=== PATIENT | female | born 1995 | race Caucasian/White ===

== ENCOUNTER → 2016-09-22 | Outpatient (CLI) | payer MEDICAID ==
[2016-09-22 16:38] LABS: BASO # 0.1 K/mm3 (0.0-0.2); BASO % 1.5 % (0.0-1.0); EOS # 0.2 K/mm3 (0.0-0.50); LYMPH # 1.1 K/mm3 (1.5-6.5); LYMPH % 12.8 % (24.0-44.0); MEAN CORPUSCULAR HEMOGLOBIN 30.9 pg (27.0-33.0); MEAN CORPUSCULAR HGB CONC 34.8 g/dl (32.0-36.5); MEAN CORPUSCULAR VOLUME 88.8 fl (80.0-96.0); MONO # 0.3 K/mm3 (0.0-0.8); MONO % 4.2 % (0.0-5.0); NEUTROPHILS # 6.1 K/mm3 (1.8-7.7); NEUTROPHILS % 78.1 % (36.0-66.0); RED CELL DISTRIBUTION WIDTH 12.6 % (11.5-14.5); WHITE BLOOD COUNT 7.8 K/mm3 (4.0-10.0)
[2016-09-22 17:52] LABS: ALBUMIN 4.5 GM/DL (3.2-5.2); ALBUMIN/GLOBULIN RATIO 1.67 (1.00-1.93); ALKALINE PHOSPHATASE 104 U/L (45-117); ALT/SGPT 19 U/L (12-78); ANION GAP 9 MEQ/L (8-16); AST/SGOT 14 U/L (15-37); BILIRUBIN,TOTAL 1.8 MG/DL (0.2-1.0); BLOOD UREA NITROGEN 10 MG/DL (7-18); CALCIUM LEVEL 9.3 MG/DL (8.5-10.1); CARBON DIOXIDE LEVEL 27 MEQ/L (21-32); CHLORIDE LEVEL 105 MEQ/L (98-107); CHOLESTEROL LEVEL 172 MG/DL (<200); CREATININE FOR GFR 0.87 MG/DL (0.55-1.02); FREE T4 1.15 NG/DL (0.76-1.46); GLOMERULAR FILTRATION RATE > 60.0 (>60); GLUCOSE, FASTING 77 MG/DL (70-105); POTASSIUM SERUM 4.3 MEQ/L (3.5-5.1); SODIUM LEVEL 141 MEQ/L (136-145); TOTAL PROTEIN 7.2 GM/DL (6.4-8.2); TRIGLYCERIDES LEVEL 78 MG/DL (<150)
== END ==
LOC: M LAB 15:28
PROVIDERS: ATTEND Physician Assistant
DX: Z00.01 Encounter for general adult medical examination with abnormal findings (principal); K21.9 Gastro-esophageal reflux disease without esophagitis

== ENCOUNTER → 2016-09-30 | Outpatient (CLI) | payer MEDICAID ==
--- NOTE | 2016-09-30 16:30 | REP ---
Pelvic sonography: History: Left lower quadrant pain. Findings: Transabdominal and transvaginal scanning are performed. Uterine dimensions are normal at 8.0 x 2.5 x 3.7 cm. Endometrial echo is 0.3 cm thick and centrally placed. There is a trace of endocervical fluid. No cul-de-sac fluid is seen. No focal uterine mass is seen. Normal ovaries are seen bilaterally. There is a 1.1 cm cyst in the right ovary. Right ovary dimensions are 2.9 x 2.0 x 2.1 cm. Right ovarian Doppler flow is normal with resistive index 0.29. The left ovary is normal in appearance measuring 1.8 x 2.0 x 2.5 cm. Its Doppler flow is normal with resistive index 0.35. Impression: Normal pelvic sonography. Signed by David Stanton MD 10/01/2016 08:26 A
== END ==
LOC: M RAD 14:45
PROVIDERS: ATTEND Physician Assistant
DX: R10.32 Left lower quadrant pain (principal); N83.201 Unspecified ovarian cyst, right side

== ENCOUNTER 2017-03-13 13:15 | Emergency (ER) | payer MEDICAID, OTHER ==
[~2017-03-13] VITALS: Ht 160 cm; Wt 64.7 kg
[2017-03-13 13:15] VITALS: BP 144/77
[2017-03-13] MEDS ORDERED: ACETAMINOPHEN TAB 650MG DOSE (2X325MG) PO ONE (14:00)
== END 2017-03-13 14:45 | disposition home or self-care (01) ==
LOC: M ED 14:16
DX: J06.9 Acute upper respiratory infection, unspecified (principal)

== ENCOUNTER 2017-03-16 13:42 | Emergency (ER) | payer MEDICAID, OTHER ==
[~2017-03-16] VITALS: Ht 160 cm; Wt 65.0 kg
[2017-03-16] MEDS ORDERED: NEXP1IMP SC (14:31)
--- NOTE | 2017-03-16 15:20 | REP ---
Clinical: Trauma. Technique: AP, lateral, bilateral oblique views left foot. Findings: The osseous structures and joint spaces are intact and normal. There is no evidence for acute fracture or dislocation. Surrounding soft tissues are unremarkable. No subcutaneous emphysema or radiodense foreign body. Impression: Age appropriate examination. No acute fracture or dislocation. Signed by Lee Sloan MD 03/16/2017 03:11 P
[2017-03-16] MEDS ORDERED: NAPR500T PO (15:23)
[2017-03-16 15:26] VITALS: BP 122/89
--- NOTE | 2017-03-16 15:32 | REP ---
Clinical: Trauma . Technique: AP, lateral, bilateral oblique views left ankle . Findings: No acute fracture or dislocation. Skeletal structures and joint spaces are intact and normal. Ankle mortise appears stable. No subcutaneous emphysema or radiodense foreign body. Impression: Normal left ankle radiograph series. Signed by Lee Sloan MD 03/16/2017 03:23 P
== END 2017-03-16 15:32 | disposition home or self-care (01) ==
LOC: M ED 13:42
DX: S93.492A Sprain of other ligament of left ankle, initial encounter (principal); S93.602A Unspecified sprain of left foot, initial encounter; X50.9XXA Other and unspecified overexertion or strenuous movements or postures, initial encounter; Y92.019 Unspecified place in single-family (private) house as the place of occurrence of the external cause; Y93.01 Activity, walking, marching and hiking; Y99.8 Other external cause status; F17.210 Nicotine dependence, cigarettes, uncomplicated; Z79.3 Long term (current) use of hormonal contraceptives

== ENCOUNTER → 2017-04-08 | Outpatient (CLI) | payer OTHER ==
[~2017-04-08] MED LIST: NAPR500T PO; NEXP1IMP SC
== END ==
LOC: M LAB 14:05
PROVIDERS: ATTEND Physician Assistant
DX: E55.9 Vitamin D deficiency, unspecified (principal)

== ENCOUNTER → 2017-04-08 | Outpatient (CLI) | payer OTHER | LOC: M LAB 14:02 | PROVIDERS: ATTEND Physician Assistant | DX: Z00.00 Encounter for general adult medical examination without abnormal findings (principal) ==

== ENCOUNTER → 2017-04-11 | Outpatient (CLI) | payer OTHER ==
--- NOTE | 2017-04-12 04:00 | REP ---
Clinical: Follow-up ovarian cyst. Comparison: 09/30/2016. Technique: Transabdominal pelvic ultrasound followed by transvaginal examination for better evaluation of the endometrium and adnexa with color Doppler evaluation of the ovaries. Findings: Bladder is unremarkable and measures 5.2 x 1.8 x 3.5 cm . Normal anteverted uterus measures 7.9 x 2.8 x 4.0 cm. The endometrial complex measures 2.5 mm thickness. No discrete uterine or endometrial abnormalities are appreciated. Trace endocervical fluid is appreciated and nonspecific. Bilateral ovaries are normal in appearance and vascularity without evidence for torsion. Right ovary measures 1.9 x 1.5 x 1.7 cm ; R I = 0.63 . Left ovary measures 3.4 x 3.1 x 2.4 cm with 2.3 cm dominant follicle ; R I = 0.54 . No pelvic fluid or adnexal mass lesion. Previously identified right ovarian cyst likely represented physiologic cyst / follicle and has resolved. Impression: 1. Normal pelvic ultrasound. Signed by Lee Sloan MD 04/12/2017 03:51 A
== END ==
LOC: M RAD 10:19
PROVIDERS: ATTEND Nurse Practitioner Adult Health
DX: R10.9 Unspecified abdominal pain (principal)

== ENCOUNTER 2017-07-31 11:14 | Emergency (ER) | payer OTHER ==
[~2017-07-31] VITALS: Ht 160 cm; Wt 66.4 kg
[2017-07-31 11:15] VITALS: BP 133/84
[2017-07-31] MEDS ORDERED: ELIM5CRE2 TOP ×2 (11:43→12:23)
== END 2017-07-31 11:53 | disposition home or self-care (01) ==
LOC: M ED 11:14
DX: B86 Scabies (principal)

== ENCOUNTER 2018-10-03 22:59 | Emergency (ER) | payer OTHER ==
[~2018-10-03] VITALS: Ht 165.1 cm; Wt 72.3 kg
[~2018-10-03 22:59] MED LIST changes: +ELIM5CRE2 TOP; +NAPR-50 PO; -NAPR500T PO
[2018-10-03 23:00] VITALS: BP 130/75
--- NOTE | 2018-10-04 05:48 | REP ---
Clinical: Trauma. Technique: AP, lateral right forearm. Findings: The osseous structures and joint spaces are intact and normal. There is no evidence for acute fracture or dislocation. Surrounding soft tissues are unremarkable. No subcutaneous emphysema or radiodense foreign body. Impression: Normal examination . No acute fracture or dislocation. Electronically Signed by Lee Sloan MD 10/04/2018 05:40 A
== END 2018-10-04 00:19 | disposition home or self-care (01) ==
LOC: M ED 22:59
DX: S50.11XA Contusion of right forearm, initial encounter (principal); Y92.89 Other specified places as the place of occurrence of the external cause; Y99.0 Civilian activity done for income or pay; F17.210 Nicotine dependence, cigarettes, uncomplicated

== ENCOUNTER → 2018-12-05 | Outpatient (CLI) | payer BC ==
--- NOTE | 2018-12-05 14:29 | REP ---
Clinical: Nonacute right knee pain Technique: AP, lateral, bilateral oblique and sunrise views. Findings: The osseous structures and joint spaces are intact and normal. There is no evidence for acute fracture or dislocation. No joint effusion is appreciated. Surrounding soft tissues are unremarkable. No subcutaneous emphysema or radiodense foreign body. Impression: Normal examination. No acute fracture or dislocation. Electronically Signed by eLe Sloan MD 12/05/2018 02:21 P
== END ==
LOC: M RAD 11:01
PROVIDERS: ATTEND Physician Assistant
DX: M25.569 Pain in unspecified knee (principal)

== ENCOUNTER 2019-01-10 14:30 | Inpatient (IN) | payer BC ==
[~2019-01-10] VITALS: Ht 160 cm; Wt 73.5 kg
[~2019-01-10 14:30] MED LIST changes: -NAPR-50 PO; +NAPR-837 PO
[2019-01-10] MEDS ORDERED: NALOXONE INJ 0.4 MG/1 ML VIAL (J2310) IV STA (14:42)
[2019-01-10] MEDS ORDERED: NS 1,000 ML IV ONE ×3 (14:45→19:00)
[2019-01-10] MEDS ORDERED: ONDANSETRON 4MG/2ML VIAL (J2405) IV ONE (14:45)
[2019-01-10 14:57] LABS: BASO # 0.1 10^3/uL (0.0-0.2); BASO % 0.3 % (0.0-1.0); EOS # 0.1 10^3/uL (0.0-0.50); EOS % 0.2 % (0.0-3.0); HEMATOCRIT 49.5 % (36.0-47.0); HEMOGLOBIN 17.1 g/dl (12.0-15.5); LYMPH # 0.8 10^3/uL (1.5-6.5); LYMPH % 2.6 % (24.0-44.0); MEAN CORPUSCULAR HGB CONC 34.5 g/dl (32.0-36.5); MEAN CORPUSCULAR VOLUME 92.5 fl (80.0-96.0); MONO # 1.3 10^3/uL (0.0-0.8); NEUTROPHILS % 92.2 % (36.0-66.0); PLATELET COUNT, AUTOMATED 366 10^3/uL (150-450); RED BLOOD COUNT 5.35 10^6/uL (4.00-5.40)
[2019-01-10] MEDS ORDERED: HYDR-643 PO (15:08)
[2019-01-10] MEDS ORDERED: VENL37.598 PO (15:08)
[2019-01-10 15:15] LABS: NEUTROPHILS # 29.3 10^3/uL (1.8-7.7)
[2019-01-10 15:18] LABS: AMPHETAMINES LEVEL URINE NEGATIVE (NEGATIVE); BARBITURATES URINE NEGATIVE (NEGATIVE); BENZODIAZEPINES URINE NEGATIVE (NEGATIVE); CANNABINOIDS URINE NEGATIVE (NEGATIVE); COCAINE METABOLITE URINE NEGATIVE (NEGATIVE); METHADONE URINE NEGATIVE (NEGATIVE); OPIATES URINE NEGATIVE (NEGATIVE); PHENCYCLIDINE URINE NEGATIVE (NEGATIVE)
[2019-01-10 15:19] LABS: WHITE BLOOD COUNT 31.8 10^3/uL (4.0-10.0)
[2019-01-10 15:23] LABS: ALBUMIN 4.6 GM/DL (3.2-5.2); ALT/SGPT 20 U/L (12-78); AMYLASE 33 U/L (25-115); BILIRUBIN,DIRECT 0.2 MG/DL (0.0-0.2); BILIRUBIN,TOTAL 1.4 MG/DL (0.2-1.0); BLOOD UREA NITROGEN 18 MG/DL (7-18); CALCIUM LEVEL 9.1 MG/DL (8.5-10.1); CARBON DIOXIDE LEVEL 21 MEQ/L (21-32); CHLORIDE LEVEL 111 MEQ/L (98-107); CK-MB VALUE MASS < 1.0 NG/ML (<3.6); CPK CREATINE PHOSPHOKINASE 69 U/L (26-192); GLOMERULAR FILTRATION RATE 59.3 (>60); GLUCOSE, FASTING 144 MG/DL (70-100); LIPASE 83 U/L (73-393); MB/CK RELATIVE INDEX 1.45 (< OR =4); POTASSIUM SERUM 3.5 MEQ/L (3.5-5.1); SODIUM LEVEL 140 MEQ/L (136-145); TOTAL PROTEIN 8.4 GM/DL (6.4-8.2); TROPONIN I < 0.02 NG/ML (< 0.10)
[2019-01-10 15:36] LABS: BILIRUBIN, URINE MANUAL NEGATIVE (NEGATIVE); GLUCOSE, URINE (UA) MANUAL NEGATIVE (NEGATIVE); KETONE, URINE MANUAL NEGATIVE (NEGATIVE); UROBILINOGEN, URINE MANUAL NORMAL (NORMAL)
[2019-01-10 15:43] LABS: AMORPHOUS SEDIMENT, URINE LARGE AMOUNT (NEGATIVE); BACTERIA, URINE SMALL AMOUNT; SQUAMOUS EPITHELIAL CELL URINE SMALL AMOUNT /hpf (SMALL AMT)
[2019-01-10] MEDS ORDERED: metroNIDAZOLE 500 MG in APPROPRIATE DILUENT 1 EA IV ONE (15:45)
[2019-01-10] MEDS ORDERED: CIPROFLOXACIN 400 MG in APPROPRIATE DILUENT 1 EA IV ONE (15:45)
[2019-01-10] MEDS: NS 1,000 ML IV SCH ×2 (16:00→22:44)
[2019-01-10 16:53] LABS: HCG, SERUM QUALITATIVE NEGATIVE (NEGATIVE)
[2019-01-10] MEDS ORDERED: ISOVUE-370 76% 100ML VIAL (Q9967) As Ordered ONE (16:58)
--- NOTE | 2019-01-10 18:54 | REPVR ---
EXAM: CT Abdomen and Pelvis With Contrast EXAM DATE/TIME: 01/10/2019 6:00 PM CLINICAL HISTORY: 23 years old, female; Abdominal pain; Additional info: AMS TECHNIQUE: Imaging protocol: Axial computed tomography images of the abdomen and pelvis with intravenous contrast. Coronal and sagittal reformatted images were created and reviewed. Radiation optimization: All CT scans at this facility use at least one of these dose optimization techniques: automated exposure control; mA and/or kV adjustment per patient size (includes targeted exams where dose is matched to clinical indication); or iterative reconstruction. Contrast material: ISO 370; Contrast volume: 100 ml; Contrast route: IV; COMPARISON: CT ABD PELVIS W/O CONTRAST 07/20/2016 4:50 PM FINDINGS: Lungs: Clear lung bases. ABDOMEN: Liver: Normal appearing liver. Gallbladder and bile ducts: Normal appearing gallbladder. Normal common bile duct. Pancreas: Normal pancreas. Spleen: Normal appearing spleen. Adrenals: Normal adrenal glands. Kidneys and ureters: There is enhancement of the kidneys. Stomach and bowel: There is a moderate amount of secretions throughout the small bowel possibly the result of mild ileus or enteritis. Appendix: No evidence of appendicitis. PELVIS: Bladder: There is a Melvin catheter within the urinary bladder with a small amount of air in the urinary bladder. Reproductive: Normal size uterus. 4 CM by 2.7 CM cyst of the right ovary probably a large follicular cysts. ABDOMEN and PELVIS: Intraperitoneal space: There are is no evidence of pneumoperitoneum. Bones/joints: There is moderate posterior disc protrusion L4-L5. Soft tissues: Unremarkable. Vasculature: There is opacification of the aorta and the aorta is normal in size. Lymph nodes: Normal. No enlarged lymph nodes. Other findings: There is opacification of the SMV. IMPRESSION: 1. There are secretions throughout the small bowel and this may be the result of mild ileus or enteritis. 2. 4 CM by 2.7 CM cyst of the right ovary. Electronically signed by: Kyle Reyes On 01/10/2019 18:54:00 PM
[2019-01-10] MEDS ORDERED: VANCOMYCIN ORAL SOL 250MG/5ML ORAL SYRINGE PO ONE (19:30)
[2019-01-10] MEDS ORDERED: NS 1,000 ML IV SCH (20:01)
[2019-01-10] MEDS ORDERED: ONDANSETRON 4MG/2ML VIAL (J2405) IV PRN (20:15)
--- NOTE | 2019-01-10 21:36 | ECGEPIP ---
Stationary ECG Study [facility] - ED Test Date: 2019-01-10 Pat Name: KATHARINE MARIE Department: Room: - Gender: F Copy Room Technician: DEVYN : [id number] Requested By: DIMPLE Garg Order Number: [id number] Reading MD: Coy Neves Measurements Intervals [place] Rate: 96 P: 74 [place]: 152 QRS: 91 QRSD: 81 T: 58 QT: 347 QTc: 440 Interpretive Statements SINUS RHYTHM BORDERLINE RIGHT AXIS DEVIATION Comparison tracing not on file Electronically Signed On 01-10-2019 21:36:01 EDT by Coy Neves
[2019-01-10] MEDS: ACETAMINOPHEN TAB 650MG DOSE (2X325MG) PO PRN (22:39)
[2019-01-11] MEDS ORDERED: LR 1,000 ML IV STA (00:30)
[2019-01-11] MEDS: LR 1,000 ML IV SCH ×7 (00:54→23:48)
--- NOTE | 2019-01-11 04:06 | IPNPDOC ---
Text Note Date of Service The patient was seen on 01/10/19. NOTE I saw and examined the patient, and discussed the case with the resident. Agree with resident's assessment and plan. Pt presented with AMS, hypotension, tachycardia, leucocytosis and elevated lactate level- consistent with sepsis. CT abd: enteritis. She improved with IV fluid in the ER, but remained persistently tachycardic. She was admitted to PCU and empirically started on IV Cipro, IV Flagyl and oral Vanco. GI panel came positive for Norovirus; negative for other microbes, including C. diff. Will d/c oral Vanco. Keep other antibiotics for now due to very high white count and critical state on presentation. De-escalate antibiotic as pt continues to improve. Physical exam is consistent with good perfusion. HR is improved to low 100. A-FIB/CHADSVASC A-FIB History Current/History of A-Fib/PAF?: No VS,Fishbone, I+O VS, Fishbone, I+O Laboratory Tests 01/10/19 14:40 Red Blood Count 5.35, Mean Corpuscular Volume 92.5, Mean Corpuscular Hemoglobin 32.0, Mean Corpuscular Hemoglobin Concent 34.5, Red Cell Distribution Width 11.9, Neutrophils (%) (Auto) 92.2 H, Lymphocytes (%) (Auto) 2.6 L, Monocytes (%) (Auto) 4.0, Eosinophils (%) (Auto) 0.2, Basophils (%) (Auto) 0.3, Neutrophils # (Auto) 29.3 H, Lymphocytes # (Auto) 0.8 L, Monocytes # (Auto) 1.3 H, Eosinophils # (Auto) 0.1, Basophils # (Auto) 0.1 Vital Signs Date Time Temp Pulse Resp B/P (MAP) Pulse Ox O2 Delivery O2 Flow Rate FiO2 01/11/19 03:28 97.9 108 16 108/55 (72) Room Air 01/11/19 01:30 98 01/10/19 15:45 2.0 I&O- Last 24 Hours up to 6 AM 01/11/19 06:00 Intake Total 7000 ml Output Total 500 ml Balance 6500 ml SULEIMAN MARVIN MD January 11, 2019 04:06
[2019-01-11] MEDS: CIPROFLOXACIN 400 MG in APPROPRIATE DILUENT 1 EA IV SCH ×2 (05:17→15:10)
--- NOTE | 2019-01-11 05:59 | HPE ---
DATE OF ADMISSION: 01/10/2019 The patient is a 23-year-old female with no significant medical history who presented to the emergency room today due to emesis and diarrhea starting today. It was noted that the emergency room patient had lost consciousness for about 20 minutes and regained consciousness after fluid resuscitation. She reported that she had 14 watery, yellow colored stools starting today along with several episodes of emesis. No hematochezia or melena was reported. 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 She reported until today her stool has been normal formed, about two bowel movements every day. She reported eating at [employer] last night at around 11 p.m. and her boyfriend, who also ate at [employer], developed some nausea and emesis but without any diarrhea. No fever or chills was reported. The patient described that she has a diffuse crampy abdominal pain that is about a 6/10. Other than the nausea, vomiting, diarrhea and abdominal pain she reports no other symptoms. The patient reported that even though she was vomiting, she was still able to hold down solid food and liquids. REVIEW OF SYSTEMS: GENERAL: The patient denies fever or chills. HEENT: Denies any visual changes. CHEST: Denies any chest pain, palpitations, shortness of breath. ABDOMEN: Diffuse, crampy abdominal pain. Positive for emesis and watery diarrhea. PAST MEDICAL HISTORY: 1. Asthma as a child. She used to be on Advair inhalers. 2. Depression/anxiety, mostly anxiety. 3. Gastroesophageal reflux disease (GERD). The was on Famotidine 20 mg as of 10/21/2015 but denies current medication for GERD. PAST SURGICAL HISTORY: 1. Tonsils and adenoids removal. 2. Nexplanon implantation. MEDICATIONS: - Nexplanon 68 mg subcutaneous daily implantation - venlafaxine HCL 37.5 mg by mouth daily FAMILY HISTORY: Father has arthritis and heart disease. Mother has mental illness. SOCIAL HISTORY: Denies alcohol use or recreational drug use. LABORATORY DATA: CBC: WBC 31.8, hemoglobin 17.1, hematocrit 49.5, platelets 366. CMP: Sodium 140, potassium 3.5, chloride 111, carbon dioxide 21, anion gap 8, BUN 18, creatinine 1.2, GFR 59.3, fasting glucose 144, lactic acid 4.1 with repeat at 4.2. Calcium 1.9, total bilirubin 1.4, direct bilirubin 0.2, AST 15. ALT 20, alkaline phosphatase 91. Troponin less than 0.02. Total CK 69, amylase 33, lipase 83, HCG negative. Urinalysis (UA) yellow, cloudy appearance with positive blood, large amount of amorphous sediments and a small amount of urine bacteria. Negative nitrites and negative leukocyte esterase. Urine toxicology (U-Tox) negative for opiates, methadone, barbiturates. PCP, amphetamine, benzodiazepines, cocaine, metabolites and cannabinoids. IMAGING: CT of the abdomen and pelvis with contrast showed secretions throughout the small bowel and this may be the result of mild ileus or enteritis, 4 x 2.7 cm cyst of the right ovary. PHYSICAL EXAMINATION: VITAL SIGNS: Temperature 99.5, heart rate 123, respiratory rate 18, blood pressure 124/66, pulse oximetry 98% on room air. GENERAL: The patient is in minimal distress. The patient appears to be fatigued. She is laying on the bed awake, alert and oriented times three. HEENT: Head normocephalic atraumatic. Conjunctivae grossly unremarkable. No sclerae icterus noted. Mucosa appears to be mildly dry. HEART: Tachycardia, regular rhythm, no murmur, normal S1, S2. LUNGS: Clear to auscultation bilaterally, no rales, wheezing or rhonchi. ABDOMEN: Bowel sounds auscultated in all four quadrants. Mild increased tenderness upon palpation of all four quadrants. No obvious distention or guarding noted. INTEGUMENTARY: No obvious jaundice noted. NEUROLOGIC: The patient is awake, alert and oriented times three, cognitive function and memory appears grossly normal. Able to carry a normal conversation and answering questions. Denies any numbness or tingling upon palpation in all four extremities. MUSCULOSKELETAL: Strength plus 5/5 in all four extremities. ASSESSMENT AND PLAN: 1. Enteritis. The patient had a syncope of about 20 minutes, loss of consciousness likely due to excessive dehydration from vomiting and diarrhea. It is noted that the patient woke up with a sternal rub with pinpoint pupils present in the emergency room. She had received 3 liters of normal saline bolus and regained consciousness after fluid resuscitation. At the time of examination the patient is awake, alert and oriented times three with normal sensation and muscle strength. No gross abnormalities except for sinus tachycardia observed on the residential monitor. Frequent watery diarrhea. No hematochezia or melena was reported. The patient had 13 episodes of watery diarrhea starting from today along with multiple episodes of emesis. She was in contact with a Clostridium difficile patient about four days ago and was in direct contact with the patient's stool. It was noted that she reported she ate [employer] yesterday around 11 p.m. and the boyfriend who also ate [employer] had nausea and vomiting this morning as well. The patient denied that the boyfriend had diarrhea at the time of interview. Likely secondary to Clostridium difficile colitis versus food intoxication vs other infectious etiologies. Complete metabolic profile (CMP) grossly unremarkable. The patient did have elevated lactic acid of 4.1 and 4.2 as a repeat. Leukocytosis was neutrophil predominance. CT of the abdomen and pelvis revealed enteritis. She also reported diffuse cramping abdominal pain which is tender to palpation without obvious guarding or distention. IV normal saline, by mouth vancomycin and probiotics as scheduled. The patient already received one dose of intravenous Ciprofloxacin and metronidazole when she was unconscious. An occult blood stool and gastrointestinal (GI) panel was ordered in the emergency department and the results are pending. Vital signs are scheduled. Repeat CMP and CBC tomorrow morning, Zofran as needed for nausea and vomiting and Tylenol as needed for pain/fever. Continue to observe the patient closely. Contact isolation. [facility]
[2019-01-11] MEDS ORDERED: VANCOMYCIN ORAL SOL 250MG/5ML ORAL SYRINGE PO SCH ×2 (06:00)
[2019-01-11 06:50] VITALS: BP 132/74
[2019-01-11] MEDS: HEPARIN SOD (PORCINE) 5000 UNITS/ML VIAL SC SCH ×3 (06:57→20:54)
[2019-01-11 07:41] VITALS: BP 123/73
[2019-01-11 07:51] LABS: ALBUMIN 2.7 GM/DL (3.2-5.2); ALT/SGPT 10 U/L (12-78); BILIRUBIN,TOTAL 1.1 MG/DL (0.2-1.0); BLOOD UREA NITROGEN 5 MG/DL (7-18); CALCIUM LEVEL 6.9 MG/DL (8.5-10.1); CARBON DIOXIDE LEVEL 19 MEQ/L (21-32); CHLORIDE LEVEL 114 MEQ/L (98-107); CREATININE FOR GFR 0.64 MG/DL (0.55-1.30); GLOMERULAR FILTRATION RATE > 60.0 (>60); GLUCOSE, FASTING 87 MG/DL (70-100); POTASSIUM SERUM 3.5 MEQ/L (3.5-5.1); SODIUM LEVEL 140 MEQ/L (136-145); TOTAL PROTEIN 4.8 GM/DL (6.4-8.2)
[2019-01-11] MEDS: LACTOBACILLUS ACIDOPHILUS CAP (BACID) PO SCH ×2 (07:53→17:46)
[2019-01-11] MEDS: metroNIDAZOLE 500 MG in APPROPRIATE DILUENT 1 EA IV SCH ×5 (07:53→23:36)
[2019-01-11] MEDS: VENLAFAXINE **XR** 37.5 MG CAPSULE PO SCH (11:27)
[2019-01-11 11:42] VITALS: BP 137/82
[2019-01-11 14:00] VITALS: BP 128/68; PULSE 100
[2019-01-11] MEDS: PANTOPRAZOLE 40MG INJ (PROTONIX) (C9113) IV SCH (14:25)
[2019-01-11 14:27] LABS: HEMATOCRIT 31.6 % (36.0-47.0); MEAN CORPUSCULAR HEMOGLOBIN 31.7 pg (27.0-33.0); MEAN CORPUSCULAR HGB CONC 34.2 g/dl (32.0-36.5); MEAN CORPUSCULAR VOLUME 92.7 fl (80.0-96.0); RED BLOOD COUNT 3.41 10^6/uL (4.00-5.40); WHITE BLOOD COUNT 6.9 10^3/uL (4.0-10.0)
[2019-01-11] MEDS ORDERED: CALCIUM CARBONATE 500 MG CHEW U/D PO ONE (14:30)
[2019-01-11 14:52] LABS: ALBUMIN 2.9 GM/DL (3.2-5.2); ALT/SGPT 11 U/L (12-78); BILIRUBIN,TOTAL 0.9 MG/DL (0.2-1.0); BLOOD UREA NITROGEN 4 MG/DL (7-18); CALCIUM LEVEL 7.4 MG/DL (8.5-10.1); CARBON DIOXIDE LEVEL 21 MEQ/L (21-32); CHLORIDE LEVEL 115 MEQ/L (98-107); CREATININE FOR GFR 0.53 MG/DL (0.55-1.30); GLOMERULAR FILTRATION RATE > 60.0 (>60); GLUCOSE, FASTING 88 MG/DL (70-100); POTASSIUM SERUM 3.4 MEQ/L (3.5-5.1); SODIUM LEVEL 141 MEQ/L (136-145); TOTAL PROTEIN 4.8 GM/DL (6.4-8.2)
[2019-01-11 14:56] LABS: HEMOGLOBIN 10.8 g/dl (12.0-15.5)
[2019-01-11 14:57] LABS: PLATELET COUNT, AUTOMATED 147 10^3/uL (150-450)
--- NOTE | 2019-01-11 15:56 | IPNPDOC ---
Date Seen The patient was seen on 01/11/19. Progress Note SUBJECTIVE: Patient tells me that she is feeling better she still feels weak and groggy but otherwise is further complaints he tells me that her belly pain is improving and she is not vomiting any further OBJECTIVE PHYSICAL EXAMINATION: VITAL SIGNS: Please see below. GENERAL: Young female lying in bed awake alert oriented 3 no acute distress HEENT: Dry mucous membranes elevation CVP cranial nerves grossly intact CARDIOVASCULAR: S1-S2 mildly tachycardic noticed heart sounds appreciated. RESPIRATORY: Clear to auscultation bilaterally. ABDOMINAL: Hyperactive bowel sounds diffuse tenderness to soft palpation especially in the epigastrium EXTREMITIES: No clubbing cyanosis or edema LABORATORY DATA, IMAGING STUDIES, MICROBIOLOGY: Please see below. DVT prophylaxis ordered?: Heparin every 8 ASSESSMENT AND PLAN: This is a 23-year-old female with nausea and vomiting likely secondary to an norovirus. PROBLEMS: 1. Noro virus: This is likely the etiology for her nausea vomiting and diarrhea. Boyfriend is also sick after eating [employer]. The time being to be provided with antiemetics And nothing by mouth continued on IV fluids she was hypotensive at the time of admission significantly dehydrated she does appear to be slightly improved at this time we'll continue supportive measures. I will start her on PPI and Carafate and Tums. Leukocytosis has resolved her polycythemia has resolved and was likely hemodynamic additional. Dr. Cantu suggested continuing antimicrobials for the time being we'll continue to monitor closely discontinuing tomorrow 2. Lactic acidosis: Secondary to dehydration and hypotension resolved with IV fluids. 3. Mood disorder: Continue with venlafaxine. DISPOSITION: Pending clinical improvement. VS, I&O, 24H, [place] Vital Signs/I&O Vital Signs Date Time Temp Pulse Resp B/P (MAP) Pulse Ox O2 Delivery O2 Flow Rate FiO2 01/11/19 14:00 100 20 128/68 (88) 95 Room Air 01/11/19 11:42 97.3 01/10/19 15:45 2.0 I&O- Last 24 Hours up to 6 AM 01/11/19 06:00 Intake Total 7000 ml Output Total 500 ml Balance 6500 ml Laboratory Data 24H LABS Laboratory Tests 2 01/10/19 16:06: Human Chorionic Gonadotropin, Qual NEGATIVE 01/10/19 19:09: Lactic Acid Followup at 4 Hours 4.2*H 01/11/19 06:51: Anion Gap 7L, Glomerular Filtration Rate > 60.0, Blood Urea Nitrogen 5#L, Creatinine 0.64, Sodium Level 140, Potassium Level 3.5, Chloride Level 114H, Car bon Dioxide Level 19L, Calcium Level 6.9#L, Aspartate Amino Transf (AST/SGOT) 14, Alanine Aminotransferase (ALT/SGPT) 10L, Alkaline Phosphatase 54, Total Bilirubin 1.1H, Total Protein 4.8#L, Albumin 2.7#L, Albumin/Globulin Ratio 1.29 01/11/19 14:09: Anion Gap 5L, Glomerular Filtration Rate > 60.0, Blood Urea Nitrogen 4L, Creatinine 0.53L, Sodium Level 141, Potassium Level 3.4L, Chloride Level 115H, Carbon Dioxide Level 21, Calcium Level 7.4L, Aspartate Amino Transf (AST/SGOT) 14, Alanine Aminotransferase (ALT/SGPT) 11L, Alkaline Phosphatase 55, Total Bilirubin 0.9, Total Protein 4.8L, Albumin 2.9L, Albumin/Globulin Ratio 1.53, Nucleated Red Blood Cells % (auto) 0.0, Lactic Acid Level 1.1 CBC/BMP Laboratory Tests 01/11/19 06:51 Calcium Level 6.9 #L, Aspartate Amino Transf (AST/SGOT) 14, Alanine Aminotransferase (ALT/SGPT) 10 L, Alkaline Phosphatase 54, Total Bilirubin 1.1 H, Total Protein 4.8 #L, Albumin 2.7 #L 01/11/19 14:09 Calcium Level 7.4 L, Aspartate Amino Transf (AST/SGOT) 14, Alanine Aminotransferase (ALT/SGPT) 11 L, Alkaline Phosphatase 55, Total Bilirubin 0.9, Total Protein 4.8 L, Albumin 2.9 L, Red Blood Count 3.41 L, Mean Corpuscular Volume 92.7, Mean Corpuscular Hemoglobin 31.7, Mean Corpuscular Hemoglobin Concent 34.2, Red Cell Distribution Width 12.2 Microbiology Microbiology 01/10/19 Blood Culture, Received Pending 01/10/19 Blood Culture - Preliminary, Resulted No growth after 24 hours . All specim... 01/10/19 Gastrointestinal Tract Panel (PCR) - Final, Complete Norovirus SAMMY LANGLEY MD January 11, 2019 15:56
[2019-01-11 16:00] VITALS: BP 130/77
[2019-01-11] MEDS ORDERED: GI COCKTAIL 50ML BTL(HYOSCYAMINE/MAALOX/LIDOCAINE VISCOUS)(1:3:1) PO ONE ×2 (16:00→23:45)
[2019-01-11] MEDS: MORPHINE 4 MG/ML 1ML VIAL/SYRINGE (J2270) IV PRN ×2 (17:46→20:54)
[2019-01-11] MEDS: SUCRALFATE 1 GM TAB PO SCH ×2 (17:47→20:53)
[2019-01-11 18:31] LABS: LIPASE 46 U/L (73-393)
[2019-01-11 19:05] VITALS: BP 127/69
[2019-01-11] MEDS: ACETAMINOPHEN TAB 650MG DOSE (2X325MG) PO PRN (23:35)
[2019-01-11] MEDS ORDERED: SIMETHICONE 80 MG CHEW TAB PO ONE (23:45)
[2019-01-12] VITALS: BP 144/91
[2019-01-12 00:24] LABS: ALBUMIN 2.9 GM/DL (3.2-5.2); ALT/SGPT 14 U/L (12-78); BILIRUBIN,TOTAL 0.8 MG/DL (0.2-1.0); BLOOD UREA NITROGEN 3 MG/DL (7-18); CALCIUM LEVEL 7.7 MG/DL (8.5-10.1); CARBON DIOXIDE LEVEL 25 MEQ/L (21-32); CHLORIDE LEVEL 111 MEQ/L (98-107); CREATININE FOR GFR 0.59 MG/DL (0.55-1.30); GLOMERULAR FILTRATION RATE > 60.0 (>60); GLUCOSE, FASTING 87 MG/DL (70-100); POTASSIUM SERUM 3.3 MEQ/L (3.5-5.1); SODIUM LEVEL 140 MEQ/L (136-145); TOTAL PROTEIN 5.6 GM/DL (6.4-8.2)
[2019-01-12] MEDS ORDERED: POTASSIUM CHLORIDE 10 MEQ SR TABLET PO ONE ×2 (00:45→07:00)
[2019-01-12] MEDS: LR 1,000 ML IV SCH ×4 (03:06→16:51)
[2019-01-12 04:00] VITALS: BP 129/67
[2019-01-12] MEDS: CIPROFLOXACIN 400 MG in APPROPRIATE DILUENT 1 EA IV SCH (04:26)
[2019-01-12] MEDS: MORPHINE 4 MG/ML 1ML VIAL/SYRINGE (J2270) IV PRN (04:27)
[2019-01-12 05:04] LABS: ALBUMIN 2.7 GM/DL (3.2-5.2); ALT/SGPT 11 U/L (12-78); BILIRUBIN,TOTAL 0.8 MG/DL (0.2-1.0); BLOOD UREA NITROGEN 3 MG/DL (7-18); CALCIUM LEVEL 7.8 MG/DL (8.5-10.1); CARBON DIOXIDE LEVEL 24 MEQ/L (21-32); CHLORIDE LEVEL 112 MEQ/L (98-107); CREATININE FOR GFR 0.59 MG/DL (0.55-1.30); GLOMERULAR FILTRATION RATE > 60.0 (>60); GLUCOSE, FASTING 83 MG/DL (70-100); POTASSIUM SERUM 3.4 MEQ/L (3.5-5.1); SODIUM LEVEL 140 MEQ/L (136-145); TOTAL PROTEIN 5.4 GM/DL (6.4-8.2)
[2019-01-12] MEDS: HEPARIN SOD (PORCINE) 5000 UNITS/ML VIAL SC SCH (05:46)
[2019-01-12 07:47] VITALS: BP 129/68
[2019-01-12 08:26] LABS: MAGNESIUM LEVEL 1.5 MG/DL (1.8-2.4)
[2019-01-12] MEDS: LACTOBACILLUS ACIDOPHILUS CAP (BACID) PO SCH ×2 (09:55→16:51)
[2019-01-12] MEDS: PANTOPRAZOLE 40MG INJ (PROTONIX) (C9113) IV SCH (09:55)
[2019-01-12] MEDS: SUCRALFATE 1 GM TAB PO SCH ×4 (09:56→21:09)
[2019-01-12] MEDS: metroNIDAZOLE 500 MG in APPROPRIATE DILUENT 1 EA IV SCH (09:56)
[2019-01-12] MEDS: VENLAFAXINE **XR** 37.5 MG CAPSULE PO SCH (11:13)
[2019-01-12] MEDS: MAG SULF 1GM/100ML (MAG RUN) 1 GM in APPROPRIATE DILUENT 1 EA IV SCH ×2 (11:14→12:11)
[2019-01-12 11:45] VITALS: BP 128/85
--- NOTE | 2019-01-12 14:22 | IPNPDOC ---
Date Seen The patient was seen on 01/12/19. Progress Note SUBJECTIVE: Patient was seen and examined this morning. She currently states that she is feeling better although she is still weak. She has noted a decrease in her nausea. She denies much vomiting. She denies diarrhea and states that her stool is formed. She states that she does have an appetite this morning and would be willing to try clear liquids. She has tolerated her clear liquids and has asked to have her diet advanced. OBJECTIVE PHYSICAL EXAMINATION: VITAL SIGNS: Please see below. GENERAL: Awake, alert, and oriented. Appears in no acute distress. Lying comfortably in bed. HEENT: Atrumatic, normocephalic. Eyes are nonicteric. Trachea is midline Mucous membranes are slightly dry CARDIOVASCULAR: Normal S1, S2. Regular rate and rhythm. No clicks rubs, or murmurs RESPIRATORY: Clear vesicular lung sounds bilaterally with good respiratory effort. No wheezes, rhonci, or rales ABDOMINAL: Soft, nondistended. Mild tenderness to palpation. No rebound tenderness or guarding. Positive bowl sounds EXTREMITIES: No edema. Full and equal pulses in bilateral upper and lower extremities NEUROLOGICAL: No focal neurological deficits PSYCHOLOGICAL: Mood and affect appear appropriate LABORATORY DATA, IMAGING STUDIES, MICROBIOLOGY: Please see below. DVT prophylaxis ordered?: YES ASSESSMENT AND PLAN: Patient is a 23 year old female who presented to the [facility] ER with complaint of nausea, vomiting, diarrhea, and abdominal pain. Patient had recently eaten from [employer]. She had developed her illness shortly after. Her boyfriend who had also eaten [employer] developed similar symptoms although not as severe. PROBLEMS: 1. Acute Gastroenteritis 2/2 Norovirus infection -Patient had GI panel that was positive for Norovirus. -Patient was advanced to clear liquids diet and has tolerated. We will advance to a BRAT diet. Will continue IV fluids and discontinue tomorrow as she was fairly hypotensive and hemoconcentrated on admission likely secondary to volume loss from her acute illness -Patient has Zofran for nausea -PPI and carafate will continue -Will discontinue antibiotics as the source of her infection is not likely bacterial 2. Lactic Acidosis -Resolved 3. Mood Disorder -Venalafaxine 4. CODE STATUS: DNR -Patient had indicated to nursing that she was/wants to be DNR/DNI. I have spoken with the patient and she states that she wishes to be DNR/DNI. The patient was provided with a MOLST form and I have personally discussed it with her. She will read through it with her family. DISPOSITION: Patient is improving clinically. Will transfer to Med/Surg A-FIB/CHADSVASC A-FIB History Current/History of A-Fib/PAF?: No VS, I&O, 24H, Fishbone Vital Signs/I&O Vital Signs Date Time Temp Pulse Resp B/P (MAP) Pulse Ox O2 Delivery O2 Flow Rate FiO2 01/12/19 11:45 97.3 87 18 128/85 (99) 97 01/11/19 14:00 Room Air 01/10/19 15:45 2.0 I&O- Last 24 Hours up to 6 AM 01/12/19 06:00 Intake Total 7180 ml Output Total 3750 ml Balance 3430 ml Laboratory Data 24H LABS Laboratory Tests 2 01/11/19 14:09: Nucleated Red Blood Cells % (auto) 0.0, Anion Gap 5L, Glomerular Filtration Rate > 60.0, Lactic Acid Level 1.1, Blood Urea Nitrogen 4L, Creatinine 0.53L, Sodium Level 141, Potassium Level 3.4L, Chloride Level 115H, Carbon Dioxide Level 21, C alcium Level 7.4L, Aspartate Amino Transf (AST/SGOT) 14, Alanine Aminotransferase (ALT/SGPT) 11L, Alkaline Phosphatase 55, Total Bilirubin 0.9, Total Protein 4.8L, Albumin 2.9L, Albumin/Globulin Ratio 1.53, Lipase 46L 01/11/19 23:50: Anion Gap 4L, Glomerular Filtration Rate > 60.0, Lactic Acid Level 1.0, Blood Urea Nitrogen 3L, Creatinine 0.59, Sodium Level 140, Potassium Level 3.3L, Chloride Level 111H, Carbon Dioxide Level 25, Calcium Level 7.7L, Aspartate Amino Transf (AST/SGOT) 13, Alanine Aminotransferase (ALT/SGPT) 14, Alkaline Phosphatase 59, Total Bilirubin 0.8, Total Protein 5.6L, Albumin 2.9L, Albumin/Globulin Ratio 1.07, Magnesium Level 1.5L 01/12/19 04:15: Anion Gap 4L, Glomerular Filtration Rate > 60.0, Lactic Acid Level 0.9, Blood Urea Nitrogen 3L, Creatinine 0.59, Sodium Level 140, Potassium Level 3.4L, Chloride Level 112H, Carbon Dioxide Level 24, Calcium Level 7.8L, Aspartate Amino Transf (AST/SGOT) 12, Alanine Aminotransferase (ALT/SGPT) 11L, Alkaline Phosphatase 55, Total Bilirubin 0.8, Total Protein 5.4L, Albumin 2.7L, Album in/Globulin Ratio 1.00 CBC/BMP Laboratory Tests 01/11/19 14:09 Red Blood Count 3.41 L, Mean Corpuscular Volume 92.7, Mean Corpuscular Hemoglobin 31.7, Mean Corpuscular Hemoglobin Concent 34.2, Red Cell Distribution Width 12.2, Calcium Level 7.4 L, Aspartate Amino Transf (AST/SGOT) 14, Alanine Aminotransferase (ALT/SGPT) 11 L, Alkaline Phosphatase 55, Total Bilirubin 0.9, Total Protein 4.8 L, Albumin 2.9 L 01/11/19 23:50 Calcium Level 7.7 L, Aspartate Amino Transf (AST/SGOT) 13, Alanine Aminotransferase (ALT/SGPT) 14, Alkaline Phosphatase 59, Total Bilirubin 0.8, Total Protein 5.6 L, Albumin 2.9 L 01/12/19 04:15 Calcium Level 7.8 L, Aspartate Amino Transf (AST/SGOT) 12, Alanine Aminotransferase (ALT/SGPT) 11 L, Alkaline Phosphatase 55, Total Bilirubin 0.8, Total Protein 5.4 L, Albumin 2.7 L Microbiology Microbiology 01/10/19 Blood Culture - Preliminary, Resulted No growth after 24 hours . All specim... 01/10/19 Blood Culture - Preliminary, Resulted No growth after 24 hours . All specim... 01/10/19 Gastrointestinal Tract Panel (PCR) - Final, Complete Norovirus GME ATTESTATION GME ATTESTATION My faculty preceptor for this patient encounter was physically present during the encounter and was fully available. All aspects of the patient interview, examination, medical decision making process, and medical care plan development were reviewed and approved by the faculty preceptor. The faculty preceptor is aware and concurs with the plan as stated in the body of this note and will attest to such by his/her cosignature. ATTENDING NOTE I saw and evaluated the patient. I agree with the findings and plan of care as documented in the resident's note ABBI KELLER DO January 12, 2019 13:10 SAMMY LANGLEY MD January 14, 2019 16:38
[2019-01-12 20:00] VITALS: BP 144/87
[2019-01-13] VITALS: BP 136/92
[2019-01-13] MEDS: LR 1,000 ML IV SCH (02:27)
[2019-01-13 04:00] VITALS: BP 148/69
[2019-01-13 07:30] LABS: HEMATOCRIT 31.5 % (36.0-47.0); HEMOGLOBIN 10.9 g/dl (12.0-15.5); MEAN CORPUSCULAR HEMOGLOBIN 31.8 pg (27.0-33.0); MEAN CORPUSCULAR HGB CONC 34.6 g/dl (32.0-36.5); MEAN CORPUSCULAR VOLUME 91.8 fl (80.0-96.0); PLATELET COUNT, AUTOMATED 172 10^3/uL (150-450); RED BLOOD COUNT 3.43 10^6/uL (4.00-5.40); WHITE BLOOD COUNT 6.4 10^3/uL (4.0-10.0)
[2019-01-13 07:38] LABS: ALBUMIN 2.9 GM/DL (3.2-5.2); ALT/SGPT 11 U/L (12-78); BILIRUBIN,TOTAL 0.7 MG/DL (0.2-1.0); BLOOD UREA NITROGEN 3 MG/DL (7-18); CALCIUM LEVEL 7.9 MG/DL (8.5-10.1); CARBON DIOXIDE LEVEL 23 MEQ/L (21-32); CHLORIDE LEVEL 112 MEQ/L (98-107); CREATININE FOR GFR 0.54 MG/DL (0.55-1.30); GLOMERULAR FILTRATION RATE > 60.0 (>60); GLUCOSE, FASTING 81 MG/DL (70-100); POTASSIUM SERUM 3.7 MEQ/L (3.5-5.1); SODIUM LEVEL 142 MEQ/L (136-145); TOTAL PROTEIN 5.1 GM/DL (6.4-8.2)
[2019-01-13] MEDS: LACTOBACILLUS ACIDOPHILUS CAP (BACID) PO SCH (07:52)
[2019-01-13] MEDS: SUCRALFATE 1 GM TAB PO SCH (07:52)
[2019-01-13] MEDS: PANTOPRAZOLE 40MG INJ (PROTONIX) (C9113) IV SCH (09:02)
[2019-01-13] MEDS: VENLAFAXINE **XR** 37.5 MG CAPSULE PO SCH (09:02)
--- NOTE | 2019-01-13 12:24 | DS.PDOC ---
Discharge Summary General Date of Admission January 10, 2019 at 22:42 Date of Discharge 01/13/19 Attending Physician: SAMMY LANGLEY MD Discharge Summary PROCEDURES PERFORMED DURING STAY: [None]. ADMITTING DIAGNOSES: 1. Acute Gastroenteritis DISCHARGE DIAGNOSES: 1. Acute Gastroenteritis COMPLICATIONS/CHIEF COMPLAINT: Enteritis. HISTORY OF PRESENT ILLNESS: Patient is a 23 year old female with no significant past medical history who presented to the [facility] ER with a complaint of intractable nausea, vomiting, diarrhea that started 01/09/19. She stated that she has had 14 watery stools. She had denied any fevers or chills. 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 Additionally, the patient had stated that she ate [employer] on 01/09/19 with her boyfriend. After eating she developed some nausea and vomiting but not diarrhea. She continued to have diffuse abdominal pain. She noted that her boyfriend also began to feel ill although less so then her. The patient continued to have nausea and vomiting and was unable to keep any liquids or food down and presented to the ER. In the ER, the patient had an episode of altered mental status which was felt to be due to hypovolemia secondary to excessive dehydration from vomiting and diarrhea. The patient was arousable to sternal rub. The patient was found to have an elevated lactic acid. She received a CT abdomen and pelvis which demonstrated findings consistent with enteritis. She continued to have diffuse cramping. She was given broad spectrum antibiotic coverage and IV normal saline. Patient was admitted to hospitalist service for further management. HOSPITAL COURSE: Once admitted, patient was found to have Norovirus as demonstrated on GI panel. Her symptoms were improving with IV hydration and antiemetics. Her antibiotics were discontinued as her symptoms were of viral etiology and not bacterial. Clinically the patient continued to improve and her diet was advanced to clear liquids. The patient had tolerated and her diet was advanced to BRAT. She tolerated well and had no nausea, vomiting, diarrhea, or fevers. DISCHARGE MEDICATIONS: Please see below. ALLERGIES: Please see below. PHYSICAL EXAMINATION ON DISCHARGE: VITAL SIGNS: Please see below. GENERAL: Awake, alert, and oriented. Appears in no acute distress. Lying comfortably in bed. HEENT: Atrumatic, normocephalic. Eyes are nonicteric. Trachea is midline Mucous membranes are slightly dry CARDIOVASCULAR: Normal S1, S2. Regular rate and rhythm. No clicks rubs, or murmurs RESPIRATORY: Clear vesicular lung sounds bilaterally with good respiratory effort. No wheezes, rhonci, or rales ABDOMINAL: Soft, nondistended. No tenderness to palpation of all 4 quadrants. No rebound tenderness or guarding. Positive bowl sounds EXTREMITIES: No edema. Full and equal pulses in bilateral upper and lower extremities NEUROLOGICAL: No focal neurological deficits PSYCHOLOGICAL: Mood and affect appear appropriate LABORATORY DATA: Please see below. IMAGING: EXAM: CT Abdomen and Pelvis With Contrast EXAM DATE/TIME: 01/10/2019 6:00 PM CLINICAL HISTORY: 23 years old, female; Abdominal pain; Additional info: AMS TECHNIQUE: Imaging protocol: Axial computed tomography images of the abdomen and pelvis with intravenous contrast. Coronal and sagittal reformatted images were created and reviewed. Radiation optimization: All CT scans at this facility use at least one of these dose optimization techniques: automated exposure control; mA and/or kV adjustment per patient size (includes targeted exams where dose is matched to clinical indication); or iterative reconstruction. Contrast material: ISO 370; Contrast volume: 100 ml; Contrast route: IV; COMPARISON: CT ABD PELVIS W/O CONTRAST 07/20/2016 4:50 PM FINDINGS: Lungs: Clear lung bases. ABDOMEN: Liver: Normal appearing liver. Gallbladder and bile ducts: Normal appearing gallbladder. Normal common bile duct. Pancreas: Normal pancreas. Spleen: Normal appearing spleen. Adrenals: Normal adrenal glands. Kidneys and ureters: There is enhancement of the kidneys. Stomach and bowel: There is a moderate amount of secretions throughout the small bowel possibly the result of mild ileus or enteritis. Appendix: No evidence of appendicitis. PELVIS: Bladder: There is a Melvin catheter within the urinary bladder with a small amount of air in the urinary bladder. Reproductive: Normal size uterus. 4 CM by 2.7 CM cyst of the right ovary probably a large follicular cysts. ABDOMEN and PELVIS: Intraperitoneal space: There are is no evidence of pneumoperitoneum. Bones/joints: There is moderate posterior disc protrusion L4-L5. Soft tissues: Unremarkable. Vasculature: There is opacification of the aorta and the aorta is normal in size. Lymph nodes: Normal. No enlarged lymph nodes. Other findings: There is opacification of the SMV. IMPRESSION: 1. There are secretions throughout the small bowel and this may be the result of mild ileus or enteritis. 2. 4 CM by 2.7 CM cyst of the right ovary. Electronically signed by: Kyle Reyes On 01/10/2019 18:54:00 PM PROGNOSIS: GOOD ACTIVITY: [As tolerated]. DIET: tolerated DISCHARGE PLAN: Patient is to be discharged home. She is to advance her diet as tolerated. She may return to work in 1 week. She is to follow-up with her primary care doctor as needed. DISPOSITION: 01 Home, Self-Care. DISCHARGE CONDITION: [Stable]. TIME SPENT ON DISCHARGE: Greater than 35 minutes. Vital Signs/I&Os Vital Signs Date Time Temp Pulse Resp B/P (MAP) Pulse Ox O2 Delivery O2 Flow Rate FiO2 01/13/19 04:00 99.2 75 16 148/69 (95) 96 01/11/19 14:00 Room Air 01/10/19 15:45 2.0 I&O- Last 24 Hours up to 6 AM 01/13/19 05:59 Intake Total 2395 ml Output Total 3250 ml Balance -855 ml Laboratory Data Labs 24H Laboratory Tests 2 01/13/19 06:40: Anion Gap 7L, Glomerular Filtration Rate > 60.0, Blood Urea Nitrogen 3L, Creatinine 0.54L, Sodium Level 142, Potassium Level 3.7, Chloride Level 112H, Carbon Dioxide Level 23, Calcium Level 7.9L, Aspartate Amino Transf (AST/SGOT) 14, Alanine Aminotransferase (ALT/SGPT) 11L, Alkaline Phosphatase 55, Total Bilirubin 0.7, Total Protein 5.1L, Albumin 2.9L, Albumin/Globulin Ratio 1.32 01/13/19 07:13: Nucleated Red Blood Cells % (auto) 0.0 CBC/BMP Laboratory Tests 01/13/19 06:40 Calcium Level 7.9 L, Aspartate Amino Transf (AST/SGOT) 14, Alanine Aminotransferase (ALT/SGPT) 11 L, Alkaline Phosphatase 55, Total Bilirubin 0.7, Total Protein 5.1 L, Albumin 2.9 L 01/13/19 07:13 Red Blood Count 3.43 L, Mean Corpuscular Volume 91.8, Mean Corpuscular Hemoglo bin 31.8, Mean Corpuscular Hemoglobin Concent 34.6, Red Cell Distribution Width 11.9 Microbiology Microbiology 01/10/19 Blood Culture - Preliminary, Resulted No Growth after 48 hours. All Specime... 01/10/19 Blood Culture - Preliminary, Resulted No Growth after 48 hours. All Specime... 01/10/19 Gastrointestinal Tract Panel (PCR) - Final, Complete Norovirus Discharge Medications Scheduled Etonogestrel (Nexplanon) 68 Mg Imp, 68 MG SC DAILY, (Reported) Venlafaxine HCl (Venlafaxine HCl ER) 37.5 Mg Cap.er.24h, 37.5 MG PO DAILY, (Reported) Allergies Coded Allergies: No Known Allergies (Unverified , 01/10/19) GME ATTESTATION GME ATTESTATION My faculty preceptor for this patient encounter was physically present during the encounter and was fully available. All aspects of the patient interview, examination, medical decision making process, and medical care plan development were reviewed and approved by the faculty preceptor. The faculty preceptor is aware and concurs with the plan as stated in the body of this note and will attest to such by his/her cosignature. ATTENDING NOTE I saw and evaluated the patient. I agree with the findings and plan of care as documented in the resident's note ABBI KELLER DO January 13, 2019 12:24 SAMMY LANGLEY MD January 14, 2019 16:41
== END 2019-01-13 09:45 | disposition home or self-care (01) | DRG 249 ==
LOC: M ED 14:30 → M ED INP 22:42 → M PCU 01-11 06:41 → M PED 01-12 23:51
PROVIDERS: ADMIT Internal Medicine; ATTEND Internal Medicine
DX: A08.11 Acute gastroenteropathy due to Norwalk agent (principal); E87.2 Acidosis; I95.9 Hypotension, unspecified; E86.0 Dehydration; K21.9 Gastro-esophageal reflux disease without esophagitis; F41.9 Anxiety disorder, unspecified; F32.9 Major depressive disorder, single episode, unspecified; R55 Syncope and collapse

== ENCOUNTER → 2019-01-22 | Outpatient (REF) | payer BC ==
[~2019-01-22] MED LIST changes: +HYDR-643 PO; +VENL37.598 PO
[2019-01-22 14:20] LABS: CHLAMYDIA DNA AMPLIFICATION NEGATIVE (NEGATIVE); GC DNA AMPLIFICATION NEGATIVE (NEGATIVE)
== END ==
LOC: M SFHCWAGY 11:55
PROVIDERS: ATTEND Nurse Practitioner Family
DX: Z11.3 Encounter for screening for infections with a predominantly sexual mode of transmission (principal)

== ENCOUNTER → 2019-03-12 | Outpatient (CLI) | payer BC ==
--- NOTE | 2019-03-12 10:24 | REP ---
Clinical: Pelvic pain. Right ovarian cyst . Technique: Transabdominal pelvic ultrasound followed by transvaginal examination for better evaluation of the endometrium and adnexa with color Doppler evaluation of the ovaries. Findings: Bladder is unremarkable and measures 8.5 x 9.9 x 5.3 cm . Normal anteverted/right deviated uterus measures 6.9 x 2.8 x 3.7 cm. The endometrial complex measures 1.9 mm with a small amount of endocervical fluid. No discrete uterine or endometrial abnormalities are appreciated. Bilateral ovaries are normal in appearance and vascularity without evidence for torsion. Right ovary measures 3.2 x 1.3 x 2.2 cm ; R I = 0.50 . Left ovary measures 2.9 x 1.7 x 2.4 cm ; R I = 0.53 . Prominent pelvic vessels are identified which increase on Valsalva suggesting pelvic congestion syndrome. . Impression: 1. Essentially normal uterus and bilateral ovaries. 2. Prominent pelvic vessels increasing on Valsalva suggest pelvic congestion syndrome.
== END ==
LOC: M WHC 08:47
PROVIDERS: ATTEND Nurse Practitioner Family
DX: R10.32 Left lower quadrant pain (principal)

== ENCOUNTER 2019-06-21 10:24 | Emergency (ER) | payer BC, OTHER ==
[~2019-06-21] VITALS: Ht 160 cm; Wt 73.3 kg
[2019-06-21 10:25] VITALS: BP 141/80
[2019-06-21] MEDS ORDERED: NAPR-837 PO (11:10)
== END 2019-06-21 11:29 | disposition home or self-care (01) ==
LOC: M ED 10:24
DX: S46.011A Strain of muscle(s) and tendon(s) of the rotator cuff of right shoulder, initial encounter (principal); Y93.F2 Activity, caregiving, lifting; Y92.129 Unspecified place in nursing home as the place of occurrence of the external cause; Y99.0 Civilian activity done for income or pay; F33.9 Major depressive disorder, recurrent, unspecified; F41.9 Anxiety disorder, unspecified; F17.210 Nicotine dependence, cigarettes, uncomplicated; Z79.899 Other long term (current) drug therapy

== ENCOUNTER 2019-06-23 23:24 | Emergency (ER) | payer BC, OTHER ==
[~2019-06-23] VITALS: Ht 160 cm; Wt 73.0 kg
[2019-06-23 23:24] VITALS: BP 138/74
[2019-06-23] MEDS ORDERED: KETO10TAB PO (23:38)
[2019-06-23] MEDS ORDERED: traMADol 50 MG TAB PO ONE (23:45)
[2019-06-23] MEDS ORDERED: ACETAMINOPHEN 325 MG TAB PO ONE (23:45)
== END 2019-06-24 00:01 | disposition home or self-care (01) ==
LOC: M ED 23:24
DX: S46.011D Strain of muscle(s) and tendon(s) of the rotator cuff of right shoulder, subsequent encounter (principal); Z02.79 Encounter for issue of other medical certificate; X58.XXXD Exposure to other specified factors, subsequent encounter; Y92.89 Other specified places as the place of occurrence of the external cause; Y93.9 Activity, unspecified; Y99.0 Civilian activity done for income or pay; F17.200 Nicotine dependence, unspecified, uncomplicated; Z79.899 Other long term (current) drug therapy

== ENCOUNTER 2019-12-06 22:45 | Emergency (ER) | payer BC, OTHER ==
[~2019-12-06] VITALS: Ht 160 cm; Wt 75.0 kg
[~2019-12-06 22:45] MED LIST changes: +KETO10TAB PO
[2019-12-06] MEDS ORDERED: NS 1,000 ML IV ONE (23:15)
[2019-12-06 23:45] LABS: BASO # 0.1 10^3/uL (0.0-0.2); BASO % 0.4 % (0.0-1.0); EOS # 0.3 10^3/uL (0.0-0.5); EOS % 1.5 % (0.0-3.0); HEMATOCRIT 40.4 % (36.0-47.0); HEMOGLOBIN 13.6 g/dl (12.0-15.5); LYMPH # 1.8 10^3/uL (1.5-5.0); LYMPH % 10.7 % (24.0-44.0); MEAN CORPUSCULAR HGB CONC 33.7 g/dl (32.0-36.5); MONO # 0.7 10^3/uL (0.0-0.8); MONO % 4.1 % (0.0-5.0); NEUTROPHILS # 13.9 10^3/uL (1.5-8.5); NEUTROPHILS % 82.9 % (36.0-66.0); PLATELET COUNT, AUTOMATED 218 10^3/uL (150-450); RED BLOOD COUNT 4.39 10^6/uL (4.00-5.40); WHITE BLOOD COUNT 16.7 10^3/uL (4.0-10.0)
[2019-12-06] MEDS ORDERED: ONDANSETRON 4MG/2ML VIAL (J2405) IV ONE (23:45)
[2019-12-07] MEDS ORDERED: ISOVUE-370 76% 100ML VIAL (Q9967) As Ordered ONE (00:13)
[2019-12-07 00:20] LABS: ALBUMIN 4.5 GM/DL (3.2-5.2); BILIRUBIN,DIRECT 0.2 MG/DL (0.0-0.2); BILIRUBIN,TOTAL 0.8 MG/DL (0.2-1.0)
--- NOTE | 2019-12-07 00:45 | REPVR ---
PROCEDURE INFORMATION: Exam: CT Abdomen And Pelvis With Contrast Exam date and time: 12/07/2019 12:06 AM Age: 24 years old Clinical indication: Abdominal pain; Localized; Left lower quadrant (llq); Additional info: Llq pain, n/v TECHNIQUE: Imaging protocol: Computed tomography of the abdomen and pelvis with intravenous contrast. Radiation optimization: All CT scans at this facility use at least one of these dose optimization techniques: automated exposure control; mA and/or kV adjustment per patient size (includes targeted exams where dose is matched to clinical indication); or iterative reconstruction. Contrast material: ISO; Contrast volume: 100 ml; Contrast route: AC; COMPARISON: CT ABD/PEL W/IV CONTRAST ONLY 01/10/2019 5:43 PM FINDINGS: Liver: Normal. No mass. Gallbladder and bile ducts: Normal. No calcified stones. No ductal dilation. Pancreas: Normal. No ductal dilation. Spleen: Normal. No splenomegaly. Adrenals: Normal. No mass. Kidneys and ureters: Normal. No hydronephrosis. Stomach and bowel: Unremarkable. No obstruction. No mucosal thickening. Appendix: No evidence of appendicitis. Intraperitoneal space: Unremarkable. No free air. No significant fluid collection. Vasculature: Unremarkable. No abdominal aortic aneurysm. Lymph nodes: Unremarkable. No enlarged lymph nodes. Bladder: Unremarkable as visualized. Reproductive: Unremarkable as visualized. Bones/joints: Unremarkable. No acute fracture. Soft tissues: Unremarkable. IMPRESSION: No acute process of the abdomen or pelvis. Electronically signed by: Aime Reyes On 12/07/2019 00:45:04 AM
[2019-12-07] MEDS ORDERED: ZOFR8TAB24 PO (01:08)
[2019-12-07 01:16] VITALS: BP 147/69
== END 2019-12-07 01:18 | disposition home or self-care (01) ==
LOC: M ED 22:45
DX: R10.32 Left lower quadrant pain (principal); R11.2 Nausea with vomiting, unspecified; R30.0 Dysuria; K52.9 Noninfective gastroenteritis and colitis, unspecified; Z87.42 Personal history of other diseases of the female genital tract; F17.210 Nicotine dependence, cigarettes, uncomplicated; Z79.3 Long term (current) use of hormonal contraceptives; Z79.899 Other long term (current) drug therapy
CPT/HCPCS: 74177; 80047; 80076; 81001; 83690; 84702; 85025; 96361; 96374; 99284; J2405; Q9967

== ENCOUNTER 2020-03-17 23:44 | Emergency (ER) | payer BC ==
[~2020-03-17] VITALS: Ht 160 cm; Wt 74.9 kg
[~2020-03-17 23:44] MED LIST changes: +ZOFR8TAB24 PO
[2020-03-18] MEDS ORDERED: ONDANSETRON 4MG/2ML VIAL IV ONE (01:45)
[2020-03-18] MEDS ORDERED: KETOROLAC 30 MG/ML 1ML VIAL IV ONE (01:45)
[2020-03-18] MEDS ORDERED: NS 1,000 ML IV ONE (01:45)
[2020-03-18 02:11] LABS: BASO # 0.1 10^3/uL (0.0-0.2); BASO % 0.5 % (0.0-1.0); EOS # 0.4 10^3/uL (0.0-0.5); EOS % 3.7 % (0.0-3.0); HEMATOCRIT 42.4 % (36.0-47.0); HEMOGLOBIN 14.4 g/dl (12.0-15.5); LYMPH % 27.7 % (24.0-44.0); MEAN CORPUSCULAR HEMOGLOBIN 31.4 pg (27.0-33.0); MEAN CORPUSCULAR VOLUME 92.4 fl (80.0-96.0); MONO # 0.6 10^3/uL (0.0-0.8); MONO % 5.7 % (0.0-5.0); NEUTROPHILS # 6.8 10^3/uL (1.5-8.5); PLATELET COUNT, AUTOMATED 221 10^3/uL (150-450); RED BLOOD COUNT 4.59 10^6/uL (4.00-5.40)
[2020-03-18 02:41] LABS: ALT/SGPT 17 U/L (12-78); BILIRUBIN,DIRECT < 0.1 MG/DL (0.0-0.2); BILIRUBIN,TOTAL 0.5 MG/DL (0.2-1.0); LIPASE 68 U/L (73-393); TOTAL PROTEIN 7.1 GM/DL (6.4-8.2)
--- NOTE | 2020-03-18 02:43 | REPVR ---
PROCEDURE INFORMATION: Exam: US Abdomen, Limited; Right Upper Quadrant Exam date and time: 03/18/2020 2:21 AM Age: 25 years old Clinical indication: Abdominal pain; Acute; Additional info: Ruq abd pain TECHNIQUE: Imaging protocol: US abdomen. Real time ultrasound with image documentation. Limited exam focused on the right upper quadrant. COMPARISON: CT ABD/PEL W/IV CONTRAST ONLY 12/07/2019 12:20 AM FINDINGS: Liver: The visualized liver demonstrates no focal defects. Gallbladder: The gallbladder demonstrates no stones and no wall thickening measuring 2 mm. Common bile duct: The common bile duct measures 4 mm. Pancreas: The pancreas is normal. Right kidney: The right kidney is normal measuring 10.2 cm with no hydronephrosis. IMPRESSION: Negative gallbladder sonogram. No gallstones. Electronically signed by: Temo Holland On 03/18/2020 02:43:21 AM
[2020-03-18] MEDS ORDERED: LEVS0.124 SL (03:45)
[2020-03-18] MEDS ORDERED: HYOSCYAMINE SULFATE 0.125 MG SUBL TABLET PO ONE (03:45)
[2020-03-18 04:00] VITALS: BP 114/69
--- NOTE | 2020-03-18 08:23 | ECGEPIP ---
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
== END 2020-03-18 04:13 | disposition home or self-care (01) ==
LOC: M ED 23:44
DX: K80.42 Calculus of bile duct with acute cholecystitis without obstruction (principal); F17.200 Nicotine dependence, unspecified, uncomplicated; Z79.899 Other long term (current) drug therapy
CPT/HCPCS: 76705; 80047; 80076; 83690; 84702; 85025; 93005; 93041; 96361; 96374; 96375; 99285; J1885; J2405

== ENCOUNTER 2020-09-20 12:03 | Emergency (ER) | payer OTHER, BC ==
[~2020-09-20] VITALS: Ht 160 cm; Wt 72.7 kg
[~2020-09-20 12:03] MED LIST changes: +LEVS0.124 SL
--- NOTE | 2020-09-20 12:31 | REP ---
INDICATION: crush injury to thumb COMPARISON: None. TECHNIQUE: AP, lateral, bilateral oblique views left 1st digit. FINDINGS: The osseous structures and joint spaces are intact and normal. There is no evidence for acute fracture or dislocation. Surrounding soft tissues are unremarkable. No subcutaneous emphysema or radiodense foreign body. IMPRESSION: No acute fracture or dislocation. <Electronically signed by Lee Sloan > 09/20/20 [id number]
[2020-09-20 13:45] VITALS: BP 141/81
== END 2020-09-20 14:03 | disposition home or self-care (01) ==
LOC: M ED 12:03
DX: S63.602A Unspecified sprain of left thumb, initial encounter (principal); S60.012A Contusion of left thumb without damage to nail, initial encounter; W23.1XXA Caught, crushed, jammed, or pinched between stationary objects, initial encounter; Y92.129 Unspecified place in nursing home as the place of occurrence of the external cause; Y93.F2 Activity, caregiving, lifting; Y99.0 Civilian activity done for income or pay; R51.9 Headache, unspecified; J45.909 Unspecified asthma, uncomplicated; F41.9 Anxiety disorder, unspecified; F33.9 Major depressive disorder, recurrent, unspecified; F17.200 Nicotine dependence, unspecified, uncomplicated; Z79.3 Long term (current) use of hormonal contraceptives

== ENCOUNTER → 2021-01-27 | Outpatient (REF) | LOC: M LABSMTC 10:24 | PROVIDERS: ATTEND Pediatrics | DX: Z11.52 Encounter for screening for COVID-19 (principal) ==

== ENCOUNTER → 2021-08-20 | Outpatient (CLI) | payer BC ==
[2021-08-20 11:17] LABS: HEMATOCRIT 39.4 % (36.0-47.0); HEMOGLOBIN 13.3 g/dl (12.0-15.5); MEAN CORPUSCULAR HEMOGLOBIN 31.2 pg (27.0-33.0); MEAN CORPUSCULAR HGB CONC 33.8 g/dl (32.0-36.5); MEAN CORPUSCULAR VOLUME 92.5 fl (80.0-96.0); PLATELET COUNT, AUTOMATED 279 10^3/uL (150-450); RED BLOOD COUNT 4.26 10^6/uL (4.00-5.40); WHITE BLOOD COUNT 7.4 10^3/uL (4.0-10.0)
[2021-08-20 12:14] LABS: ALBUMIN 3.5 GM/DL (3.2-5.2); ALT/SGPT 18 U/L (12-78); BILIRUBIN,TOTAL 0.5 MG/DL (0.2-1.0); BLOOD UREA NITROGEN 10 MG/DL (7-18); CALCIUM LEVEL 9.2 MG/DL (8.5-10.1); CARBON DIOXIDE LEVEL 26 MEQ/L (21-32); CHLORIDE LEVEL 106 MEQ/L (98-107); CHOLESTEROL LEVEL 217 MG/DL (<200); CHOLESTEROL RISK RATIO 3.677 (<5); CREATININE FOR GFR 0.73 MG/DL (0.55-1.30); GLOMERULAR FILTRATION RATE > 60.0 (>60); GLUCOSE, FASTING 71 MG/DL (70-100); HDL CHOLESTEROL 59 MG/DL (>40); LDL CHOLESTEROL 115 MG/DL (<100); NON-HDL-C 158 MG/DL; POTASSIUM SERUM 4.7 MEQ/L (3.5-5.1); SODIUM LEVEL 137 MEQ/L (136-145); TOTAL 25(OH) VITAMIN D 23.7 NG/ML (30.0-100.0); TOTAL PROTEIN 6.8 GM/DL (6.4-8.2); TRIGLYCERIDES LEVEL 217 MG/DL (<150)
== END ==
LOC: M PLALAB 08:34
PROVIDERS: ATTEND Physician Assistant
DX: Z13.220 Encounter for screening for lipoid disorders (principal); F41.8 Other specified anxiety disorders; E55.9 Vitamin D deficiency, unspecified; Z13.29 Encounter for screening for other suspected endocrine disorder

== ENCOUNTER → 2022-06-11 | Outpatient (CLI) | payer BC, OTHER ==
[~2022-06-11] MED LIST changes: +ETON68IM SC; -NEXP1IMP SC
== END ==
LOC: M SOG 08:04
PROVIDERS: ATTEND Orthopaedic Surgery
DX: M25.531 Pain in right wrist (principal)

== ENCOUNTER → 2022-07-01 | Outpatient (CLI) | payer BC | LOC: M PLAIMG 06:38 | PROVIDERS: ATTEND Orthopaedic Surgery | DX: M25.531 Pain in right wrist (principal) ==

== ENCOUNTER → 2022-07-18 | Outpatient (REF) | LOC: M LABSMTC 11:42 | PROVIDERS: ATTEND Family Medicine | DX: Z20.828 Contact with and (suspected) exposure to other viral communicable diseases (principal); Z11.59 Encounter for screening for other viral diseases ==

== ENCOUNTER → 2022-08-20 | Outpatient (REF) | LOC: M EMP 09:20 | PROVIDERS: ATTEND Family Medicine | DX: Z20.828 Contact with and (suspected) exposure to other viral communicable diseases (principal); Z11.59 Encounter for screening for other viral diseases ==

== ENCOUNTER → 2022-08-30 | Outpatient (CLI) | payer BC ==
[~2022-08-30] MED LIST changes: +PROHANCE 279.3MG/ML 15ML VIAL As Ordered ONE; +PROHANCE 279.3MG/ML 5ML VIAL As Ordered ONE
== END ==
LOC: M RAD 15:52
PROVIDERS: ATTEND Orthopaedic Surgery Hand Surgery
DX: M25.831 Other specified joint disorders, right wrist (principal)
CPT/HCPCS: 73223; A9576

== ENCOUNTER → 2022-10-27 | Outpatient (CLI) | payer BC ==
[~2022-10-27] MED LIST changes: -PROHANCE 279.3MG/ML 15ML VIAL As Ordered ONE; -PROHANCE 279.3MG/ML 5ML VIAL As Ordered ONE
[2022-10-27 17:45] LABS: HEMATOCRIT 39.5 % (36.0-47.0); HEMOGLOBIN 13.1 g/dl (12.0-15.5); MEAN CORPUSCULAR HEMOGLOBIN 29.2 pg (27.0-33.0); MEAN CORPUSCULAR HGB CONC 33.2 g/dl (32.0-36.5); MEAN CORPUSCULAR VOLUME 88.2 fl (80.0-96.0); PLATELET COUNT, AUTOMATED 280 10^3/uL (150-450); RED BLOOD COUNT 4.48 10^6/uL (4.00-5.40)
[2022-10-27 18:09] LABS: TOTAL PROTEIN,RANDOM URINE 12.3 MG/DL (0.0-14.0)
[2022-10-27 18:13] LABS: CREATININE,RANDOM URINE 236.6 MG/DL
[2022-10-27 18:19] LABS: LDH LACTATE DEHYDROGENASE 177 U/L (120-246)
[2022-10-27 18:20] LABS: ALT/SGPT 23 U/L (7.0-40); AST/SGOT 23 U/L (<34); BILIRUBIN,TOTAL 0.8 MG/DL (0.3-1.2); CREATININE FOR GFR 0.71 MG/DL (0.55-1.30); GLOMERULAR FILTRATION RATE > 60.0 (>60)
[2022-10-27 20:42] LABS: GC DNA AMPLIFICATION NEGATIVE (NEGATIVE)
[2022-10-27 22:49] LABS: HIV 1&2 SCREEN CENTAUR NEGATIVE (NEGATIVE)
[2022-10-27 22:58] LABS: HEPATITIS C VIRUS ABY INDEX < 0.0 INDEX (<0.8)
== END ==
LOC: M PLALAB 15:42
PROVIDERS: ATTEND Advanced Practice Midwife
DX: O10.011 Pre-existing essential hypertension complicating pregnancy, first trimester (principal); Z3A.00 Weeks of gestation of pregnancy not specified

== ENCOUNTER → 2022-11-29 | Outpatient (CLI) | payer BC | LOC: M PLALAB 07:24 | PROVIDERS: ATTEND Advanced Practice Midwife | DX: O10.011 Pre-existing essential hypertension complicating pregnancy, first trimester (principal) ==

== ENCOUNTER → 2022-12-07 | Outpatient (REF) | LOC: M LABSMTC 08:52 | PROVIDERS: ATTEND Family Medicine | DX: Z11.52 Encounter for screening for COVID-19 (principal) ==

== ENCOUNTER → 2023-01-25 | Outpatient (REF) | payer BC ==
[2023-01-25 11:10] LABS: APPEARANCE, URINE HAZY (CLEAR); BACTERIA, URINE AUTO NEGATIVE (NEGATIVE); BILIRUBIN, URINE AUTO NEGATIVE (NEGATIVE); BLOOD, URINE BLOOD NEGATIVE (NEGATIVE); CALCIUM OXALATE CRYSTALS SMALL; COLOR, URINE YELLOW (YELLOW); GLUCOSE, URINE (UA) AUTO NEGATIVE (NEGATIVE); KETONE, URINE AUTO TRACE mg/dL (NEGATIVE); LEUKOCYTE ESTERASE, URINE AUTO NEGATIVE (NEGATIVE); MUCUS, URINE SMALL (NEGATIVE); NITRITE, URINE AUTO NEGATIVE (NEGATIVE); PROTEIN, URINE AUTO NEGATIVE (NEGATIVE); RBC, URINE AUTO 2 /HPF (0-3); SPECIFIC GRAVITY URINE AUTO 1.023 (1.002-1.035); SQUAMOUS EPITHELIAL CELL UR AU 8 /HPF (0-6); UROBILINOGEN, URINE AUTO 0.2 mg/dL (0.0-2.0); WBC, URINE AUTO 1 /HPF (0-3)
== END ==
LOC: M SFHCWAGY 10:16
PROVIDERS: ATTEND Obstetrics & Gynecology
DX: R10.9 Unspecified abdominal pain (principal)

== ENCOUNTER → 2023-01-28 | Outpatient (CLI) | payer BC | LOC: M WHC 13:43 | PROVIDERS: ATTEND Obstetrics & Gynecology | DX: Z36.3 Encounter for antenatal screening for malformations (principal); Z3A.20 20 weeks gestation of pregnancy ==

== ENCOUNTER 2023-02-04 20:22 | Outpatient (CLI) | payer BC ==
[~2023-02-04] VITALS: Ht 160 cm; Wt 100.8 kg
[2023-02-04 20:50] VITALS: BP 139/65
== END 2023-02-04 21:41 | disposition home or self-care (01) ==
LOC: M LDO 20:22
PROVIDERS: ATTEND Specialist
DX: O36.8120 Decreased fetal movements, second trimester, not applicable or unspecified (principal); Z3A.21 21 weeks gestation of pregnancy

== ENCOUNTER → 2023-03-01 | Outpatient (CLI) | payer BC ==
[2023-03-01 10:38] LABS: HEMATOCRIT 34.7 % (36.0-47.0); HEMOGLOBIN 11.5 g/dl (12.0-15.5); MEAN CORPUSCULAR HEMOGLOBIN 31.1 pg (27.0-33.0); MEAN CORPUSCULAR HGB CONC 33.1 g/dl (32.0-36.5); MEAN CORPUSCULAR VOLUME 93.8 fl (80.0-96.0); PLATELET COUNT, AUTOMATED 274 10^3/uL (150-450); WHITE BLOOD COUNT 13.4 10^3/uL (4.0-10.0)
[2023-03-01 12:50] LABS: GC DNA AMPLIFICATION NEGATIVE (NEGATIVE)
== END ==
LOC: M PLALAB 06:46
PROVIDERS: ATTEND Specialist
DX: Z34.82 Encounter for supervision of other normal pregnancy, second trimester (principal)

== ENCOUNTER → 2023-04-06 | Outpatient (REF) | payer BC ==
[2023-04-06 17:59] LABS: TOTAL PROTEIN,RANDOM URINE 23.2 MG/DL (0.0-14.0)
== END ==
LOC: M SFHCWAGY 16:56
PROVIDERS: ATTEND Obstetrics & Gynecology
DX: O10.913 Unspecified pre-existing hypertension complicating pregnancy, third trimester (principal)

== ENCOUNTER → 2023-04-18 | Outpatient (CLI) | payer BC | LOC: M RAD 09:28 | PROVIDERS: ATTEND Advanced Practice Midwife | DX: O10.913 Unspecified pre-existing hypertension complicating pregnancy, third trimester (principal); Z3A.32 32 weeks gestation of pregnancy ==

== ENCOUNTER → 2023-05-19 | Outpatient (REF) | payer BC | LOC: M PLALAB 08:50 | PROVIDERS: ATTEND Advanced Practice Midwife | DX: O10.013 Pre-existing essential hypertension complicating pregnancy, third trimester (principal); Z3A.00 Weeks of gestation of pregnancy not specified ==

== ENCOUNTER → 2025-05-14 | Outpatient (CLI) | payer BC ==
[~2025-05-14] MED LIST changes: -ELIM5CRE2 TOP; +PERM60CR8 TOP
== END ==
LOC: M RAD 16:58
PROVIDERS: ATTEND Physician Assistant
DX: S83.105A Unspecified dislocation of left knee, initial encounter (principal); X58.XXXA Exposure to other specified factors, initial encounter; Y92.9 Unspecified place or not applicable